=== PATIENT | female | born 1960 | race Asian ===

== ENCOUNTER 2022-10-19 12:43 | Outpatient (CLI) | payer BC, SELFPAY ==
[2022-10-19 22:14] LABS: Albumin* 4.3 g/dL (3.3-5.0); Chloride* 107 mmol/L (96-114); Sodium* 141 mmol/L (135-149)
[2022-10-19 22:16] LABS: Cholesterol* 162 mg/dL (90-199)
[2022-10-19 22:17] LABS: Alanine Aminotransferase* 21 U/L (4-35); Alkaline Phosphatase* 85 U/L (40-150); Aspartate Amino Transferase* 29 U/L (12-35); Bilirubin Total* 1.1 mg/dL (0.1-1.5); Blood Urea Nitrogen* 11 mg/dL (7-30); Carbon Dioxide* 30 mmol/L (20-32); Creatinine* 0.7 mg/dL (0.5-1.5); Estimated Glomerular Filt Rate 97 ml/min; Glucose* 99 mg/dL (60-115); Total Protein* 6.7 g/dL (6.0-8.3); Triglycerides* 192 mg/dL (40-149)
[2022-10-19 22:18] LABS: Calcium* 9.3 mg/dL (8.4-10.6); HDL Cholesterol* 40 mg/dL (>=50); LDL Cholesterol Calculated 84 mg/dL (<100)
[2022-10-19 23:04] LABS: Hepatitis C Virus Antibody* Negative (Negative)
== END 2022-10-19 12:44 | disposition home or self-care (01) ==
PROVIDERS: PCP Emergency Medicine; Visit Provider Family Medicine
DX: Z00.00 Encounter for general adult medical examination without abnormal findings (principal); Z11.59 Encounter for screening for other viral diseases; Z13.6 Encounter for screening for cardiovascular disorders; Z01.818 Encounter for other preprocedural examination
CPT/HCPCS: 80053; 80061; 86803

== ENCOUNTER 2023-02-05 16:56 | Outpatient (CLI) | payer BC, SELFPAY ==
--- NOTE | 2023-02-05 17:15 | CRLHL7_ITS ---
For Patients: As a result of the Century Cures Act, medical imaging exams and procedure reports are released immediately into your electronic medical record. You may view this report before your referring provider. If you have questions, please contact your health care provider. BILATERAL SCREENING MAMMOGRAM WITH COMPUTER-AIDED DETECTION TECHNIQUE: CC and MLO views were obtained. These mammographic images have been obtained using full-field digital technique. These mammographic images were interpreted with the benefit of computer-aided detection. COMPARISON FILM: 11/24/19, 05/06/18, 06/05/16. FINDINGS: There are scattered areas of fibroglandular density. IMPRESSION: There is no radiographic evidence for malignancy. ASSESSMENT: BI-RADS Category 1: Negative RECOMMENDATION: Routine screening mammogram in 1 year. A lay language report of this examination will be provided to the patient. HERMINIA CEDILLO M.D. Diagnostic/Breast Radiologist [email or web address] [email or web address] Transcribed: 02/06/2023, 2:[address]/Dictated by: Herminia Cedillo MD @ 02/06/2023 8:20:00 AM (Electronically Signed)
== END 2023-02-05 16:57 | disposition home or self-care (01) ==
LOC: MAMMO 16:57
PROVIDERS: PCP Emergency Medicine; Visit Provider Family Medicine
DX: Z12.31 Encounter for screening mammogram for malignant neoplasm of breast (principal)
CPT/HCPCS: 77063; 77067

== ENCOUNTER 2023-05-17 08:57 | Outpatient (CLI) | payer BC, SELFPAY | END 2023-05-17 08:58 | disposition home or self-care (01) | PROVIDERS: PCP Family Medicine; Visit Provider Internal Medicine | DX: R00.1 Bradycardia, unspecified (principal); I34.0 Nonrheumatic mitral (valve) insufficiency | CPT/HCPCS: 93306 ==

== ENCOUNTER 2023-06-14 07:30 | Outpatient (CLI) | payer BC, SELFPAY ==
--- NOTE | 2023-06-14 09:03 | W.ANESCHARGE ---
Anesthesia Charges Start Date/Time Anesthesia Start Date: 06/14/23 Anesthesia Start Time: 08:32 Stop Date/Time Anesthesia Stop Date: 06/14/23 Anesthesia Stop Time: 08:55
== END 2023-06-14 07:31 | disposition home or self-care (01) ==
LOC: OP CLINIC 07:30
PROVIDERS: PCP Family Medicine; Visit Provider Internal Medicine
DX: Z12.11 Encounter for screening for malignant neoplasm of colon (principal); Z86.010 Personal history of colon polyps
CPT/HCPCS: 45378; 812; J2704

== ENCOUNTER 2024-06-12 14:22 | Outpatient (CLI) | payer BC, SELFPAY | END 2024-06-12 14:23 | disposition home or self-care (01) | PROVIDERS: PCP Family Medicine; Visit Provider Family Medicine | DX: Z00.00 Encounter for general adult medical examination without abnormal findings (principal); R03.0 Elevated blood-pressure reading, without diagnosis of hypertension; Z13.6 Encounter for screening for cardiovascular disorders | CPT/HCPCS: 80053; 80061 ==

== ENCOUNTER 2024-07-31 12:33 | Outpatient (CLI) | payer BC, SELFPAY ==
--- OUTSIDE RECORDS SUMMARY | 2024-07-31 12:36 | XMS_ITS | Clinical Summary ---
Author Organization [facility] Address [address] [place] [address]. [place] [address] Care Team Providers Care Powerhouse Electrician Apprentice Name Role Phone Clinic, [facility] Primary Care Provider Allergies Active Allergy Reactions Criticality Noted Date Comments Aluminum Phosphate Nausea and Vomiting 02/05/20 17 Red, sore arm, GRANDE, n/v Diphtheria Toxoid Other (See Comments) 02/05/20 17 Red, sore arm, GRANDE, n/v, dizzy Pertussis Vaccine Other (See Comments) 02/05/20 17 Red, sore arm, GRANDE, n/v, dizzy Phenoxyethanol Other (See Comments) 02/04/2017 Red, sore arm, GRANDE, n/v, dizzy Tetanus Antitoxin Other (See Comments) 02/05/20 17 Red sore arm, GRANDE, n/v, dizzy Medications Medication Sig Dispensed Refills Start Date End Date Status Fluticasone Propionate (FLONASE NA) [place] in nostril daily Active Cetirizine HCl (ZYRTEC ALLERGY PO) Take 10 mg by mouth daily Active Multiple Vitamins-Minerals (MULTIVITAMIN ADULT PO) Active erythromycin (ROMYCIN) ophthalmic ointmentIndications :Brow ptosis Place 1 Application into both eyes 3 times daily 2 Tube 1 01/28/2018 Active HYDROcodone-acetami nophen (NORCO) 5-325 MG per tabletIndications:B row ptosis Take 1 tablet by mouth every 6 hours as needed 20 tablet 01/28/2018 Active Active Problems No known active problems Social History Tobacco Use Types Packs/Day Years Used Date Smoking Tobacco: Never Smokeless Tobacco: Never Alcohol Use Standard Drinks/Week Comments Yes 0 (1 standard drink = 0.6 oz pur e alcohol) 2/week Adolescent Education Answer Date Record ed Getting School Help Needed Not on file 08/02 Sex and Gender Information Value Date Recorded Sex Assigned at Not on file Gender Identity Not on file Sexual Orientation Not on file Last Filed Vital Signs Vital Sign Reading Time Taken Comments Blood Pressure 106/78 01/28/2018 10:01 AM CDT Pulse 47 01/28/2018 6:12 AM CDT Temperature 36.4 ??C (97.6 ??F) 01/28/2018 9:15 AM CD T Respiratory Rate 16 01/28/2018 10:01 AM CDT Oxygen Saturation 96% 01/28/2018 10:01 AM CDT Inhaled Oxygen Concentration - - Weight 62.2 kg (137 lb 1.6 oz) 01/28/2018 6:12 A M CDT Height 165.1 cm (5' 5) 01/28/2018 6:12 AM CDT Body Mass Index 22.81 01/28/2018 6:12 AM CDT Plan of Treatment Not on file Care Teams Powerhouse Electrician Apprentice Relationship Specialty Start Date End Date Clinic, [facility] [id number] [place] [address] PCP - General 02/05/17
--- OUTSIDE RECORDS SUMMARY | 2024-07-31 12:36 | XMS_ITS | Referral Summary ---
Author Organization [facility] Address [address] [place] [address]. [place] [address] Care Team Providers Care Estimator Lumber Name Role Phone Clinic, [facility] Primary Care Provider Allergies Active Allergy Reactions [...] End Date Status Fluticasone Propionate (FLONASE NA) [place] in nostril daily Active Cetirizine HCl (ZYRTEC [...] of Treatment Not on file Care Teams Estimator Lumber Relationship Specialty Start Date End Date Clinic, [facility] [id number] [place] [address] PCP - General 02/05/17
--- OUTSIDE RECORDS SUMMARY | 2024-07-31 12:36 | XMS_ITS | Clinical Summary ---
Author Organization [facility] Address [place], [place] [address] Care Team Providers Care Campaign Advisor Name Role Phone Escobar, [facility]Family Health Primary Care Provider Unavailable Allergies No known active allergies Medications Medication Sig Dispensed Refills Start Date End Date Status ferrous sulfate, 65 mg elemental, (IRON, FERROUS SULFATE,) 325 mg (65 mg Iron) tablet Take 325 mg by mouth once daily with a meal. Active oxyCODONE-acetaminoph en, 5-325 mg, (PERCOCET 5-325) 5-325 mg per tablet Take 1-2 tablets by mouth every 4 hours if needed for Pain. 30 tablet 0 10/24/2010 Active ibuprofen (ADVIL; MOTRIN) 600 mg tablet Take 1 tablet by mouth every 6 hours if needed. Maximum of 3200 mg in 24 hours. 30 tablet 0 10/24/2010 Active cetirizine (ZYRTEC) 10 mg tablet Take 1 tablet by mouth once daily. 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 Fibroids 10/16/2010 Premenopausal menorrhagia 10/16/2010 Elevated CA-125 10/16/2010 Immunizations Name Administration Dates Next Due Influenza, IIV3 (Age >=3 years) 08/10/2010 Social History Tobacco Use Types Packs/Day Years Used Date Smoking Tobacco: Never Smokeless Tobacco: Never Alcohol Use Standard Drinks/Week Comments Not Asked 0 (1 standard drink = 0.6 oz pur e alcohol) Social Connections Answer Date Recorded Frequency of Communication with Friends and Fami ly Not on file 03/29/2023 Sex and Gender Information Value Date Recorded Sex Assigned at Not on file Gender Identity Not on file Sexual Orientation Not on file Obstetrics History Last Filed Vital Signs Vital Sign Reading Time Taken Comments Blood Pressure 125/82 07/16/2014 8:13 AM CDT Pulse 47 10/25/2010 8:00 AM NURSE GYNECOLOGY Temperature 36.8 ??C (98.2 ??F) 10/25/2010 8:00 AM CS T Respiratory Rate 16 10/25/2010 8:00 AM NURSE GYNECOLOGY Oxygen Saturation 100% 10/25/2010 8:00 AM NURSE GYNECOLOGY Inhaled Oxygen Concentration - - Weight 59.4 kg (131 lb) 10/24/2010 11:15 AM NURSE GYNECOLOGY Height 166.4 cm (5' 5.5) 10/24/2010 11:15 AM CS T Body Mass Index 21.47 10/24/2010 11:15 AM NURSE GYNECOLOGY Plan of Treatment Health Maintenance Due Date Last Done Comments Tdap 1969 Depression screening for age 12+ 1970 HIV for age 15-65 1973 BMI (ht and wt on same day) for age 18+ 1976 Hepatitis C screening for ag e 18-79 1976 Tetanus booster 1978 Pap test for age 21-65 1979 Colonoscopy through age 75 2003 Lipids for age 45-75 2003 Mammogram for age 45-75 2003 Zoster (shingles) series for age 50+ (1 of 2) 2008 DEXA/DXA scan for age 65+ 2023 Pneumococcal series for age 65+ (1 of 1 - PCV) 2023 COVID-19 vaccine series (2022-24 season) 2024 09/01/2022, 03/24/2022, 09/01/2021, Additional history exists Influenza for age 65+ 07/12/2024 08/10/2010 Advance Directives * Full Code (Latest Code Status on File) Date Activated Date Inactivated Comments 10/24/2010 5:06 PM 10/25/2010 4:20 PM * Full Code Date Activated Date Inactivated Comments 10/24/2010 10:37 AM 10/24/2010 12:15 PM Care Teams Campaign Advisor Relationship Specialty Start Date End Date Dwayne [facility]Family Health PCP - General 11/13/16
== END 2024-07-31 12:34 | disposition home or self-care (01) ==
LOC: FRMREF 12:34
PROVIDERS: PCP Family Medicine; Visit Provider Family Medicine
DX: E04.1 Nontoxic single thyroid nodule (principal)
CPT/HCPCS: 84443

== ENCOUNTER 2025-06-03 15:25 | Outpatient (CLI) | payer BC, SELFPAY ==
--- NOTE | 2025-06-03 15:40 | CRLHL7_ITS ---
For Patients: As a result of the Century Cures Act, medical imaging exams and procedure reports are released immediately into your electronic medical record. You may view this report before your referring provider. If you have questions, please contact your health care provider. INDICATION: BILATERAL SCREENING MAMMOGRAM, ASYMPTOMATIC 64 Y/O FEMALE COMPARISON: 02/05/2023, 11/24/2019, 05/06/2018 TECHNIQUE: Digital mammogram in CC and MLO projections including computer-aided detection (CAD) and tomosynthesis. BREAST COMPOSITION: The breasts are heterogeneously dense, which may obscure small masses. FINDINGS: No suspicious findings. ASSESSMENT: BI-RADS 1 Negative RECOMMENDATION: Annual screening mammogram. A lay language report of this examination will be provided to the patient. Dictated by: Emily Cook MD @ 06/05/2025 14:35:13 (Electronically Signed)
== END 2025-06-03 15:26 | disposition home or self-care (01) ==
LOC: MAMMO 15:26
PROVIDERS: PCP Family Medicine; Visit Provider Family Medicine
DX: Z12.31 Encounter for screening mammogram for malignant neoplasm of breast (principal); R92.333 Mammographic heterogeneous density, bilateral breasts
CPT/HCPCS: 77063; 77067

== ENCOUNTER 2025-07-19 08:22 | Outpatient (CLI) | payer BC, SELFPAY | END 2025-07-19 08:23 | disposition home or self-care (01) | LOC: NFLDREF 07-22 09:29 | PROVIDERS: PCP Family Medicine; Referring Provider Family Medicine; Visit Provider Family Medicine | DX: Z00.00 Encounter for general adult medical examination without abnormal findings (principal); E04.1 Nontoxic single thyroid nodule; R03.0 Elevated blood-pressure reading, without diagnosis of hypertension | CPT/HCPCS: 80053; 80061; 82043; 82570; 84443 ==

== ENCOUNTER 2025-07-23 08:00 | Outpatient (CLI) | payer BC, SELFPAY | END 2025-07-23 08:01 | disposition home or self-care (01) | LOC: NFLDREF 07-27 08:39 | PROVIDERS: PCP Family Medicine; Referring Provider Family Medicine; Visit Provider Family Medicine | DX: R19.7 Diarrhea, unspecified (principal) | CPT/HCPCS: 83789; 87045; 87046; 87177; 87209; 87427; 87493 ==